=== PATIENT | female | born 2000 | race Caucasian/White ===

== ENCOUNTER 2021-04-03 17:23 | Inpatient (IN) | payer OTHER, SELFPAY ==
[2021-04-03 17:34] VITALS: BMI 23.8
[2021-04-03 18:25] VITALS: BP 111/69; PULSE 98; RESP 16; TEMP 36.2; O2SAT 98
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
--- NOTE | 2021-04-03 22:02 | PC.NURSE ---
Pt signed a 3-day notice 04/03/21, up on 04/06/21
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
[2021-04-04 06:00] VITALS: BP 114/73; PULSE 98; RESP 16; TEMP 35.8; O2SAT 99
[2021-04-04 10:22] LABS: UPreg QC Valid YES; Urine Pregnancy NEGATIVE (NEGATIVE)
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
[2021-04-04 19:40] VITALS: BP 126/77; PULSE 94; TEMP 36.6
[2021-04-04] MEDS: risperiDONE 1 MG TABLET PO (20:36)
[2021-04-04] MEDS: hydrOXYzine HCL 25 MG TABLET PO (22:39)
[2021-04-05 06:30] VITALS: BP 99/61; PULSE 83; RESP 16; O2SAT 98
[2021-04-05] MEDS: risperiDONE 1 MG TABLET PO ×2 (09:03→20:30)
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
[2021-04-05 17:42] VITALS: BP 119/76; PULSE 107; RESP 16; TEMP 36.2; O2SAT 93
[2021-04-05] MEDS: hydrOXYzine HCL 25 MG TABLET PO (21:37)
[2021-04-06 06:47] VITALS: BP 108/66; PULSE 76; TEMP 36; O2SAT 95
[2021-04-06] MEDS: risperiDONE 1 MG TABLET PO (09:08)
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
== END 2021-04-06 13:55 | disposition home or self-care (01) | DRG 751 ==
PROVIDERS: Registered Nurse; Admitting Provider Psychiatry & Neurology Psychiatry; Visit Provider Social Worker
DX: F29 Unspecified psychosis not due to a substance or known physiological condition (principal); Z79.899 Other long term (current) drug therapy
CPT/HCPCS: 81025

== ENCOUNTER 2021-05-10 14:22 | Inpatient (IN) | payer MEDICAID, SELFPAY ==
[2021-05-10 14:28] VITALS: BP 139/45; PULSE 94; O2SAT 98
--- NOTE | 2021-05-10 14:30 | ED_ITS ---
HPI - Psych General Chief Complaint: Psychiatric Symptoms Stated Complaint: crisis Time Seen by Provider: 05/10/21 14:25 Source: patient and EMS Mode of arrival: ambulatory Limitations: no limitations History of Present Illness HPI Narrative: This is a 20-year-old female coming from a [email or web address] parking lot where she called EMS, because she felt unsafe. When asking her what is wrong with her today she states I am going crazy for real . She states that she has been feeling weird for the past 2-3 months since her grandfather . She states that since he , she has been hearing his voice, in seeing him. She states she has been drinking more, and she decided to stop her risperidone about a week ago. She also states that she is going through a break-up with her significant other. She thinks that she might be at this time, she states she has been having nausea, vomiting, abdominal pain. She denies SI and states she is upset and wants to hurt her exboyfriend. She has munoz d 1 previous hospital admission here at [facility] on 04/06/2021 where she was diagnosed with unspecified psychotic disorder, and started on risperidone (1mg PO BID). She denies chest pain, shortness of breath, fevers, chills, recent sick contacts, tactile hallucinations. She admits to visual and auditory hallucinations. She states she has been drinking more recently but is unable to specify what she is drinking and how often. She does not drink, or smoke. Throughout the interview she appears paranoid. MD complaint: feels depressed, anxiety, hallucinations (Visual and auditory) and other (Increased alcohol consumption) Onset (ago): day(s) (1) Duration: constant History of same: Yes Relieving factors: none Exacerbating factors: none Context: not taking psychiatric medications (Stop risperidone about a week ago) and significant life stressor Associated psychiatric symptoms: depression, suicidal ideation, homicidal ideation, racing thoughts, auditory hallucinations (Hearing her grandfather, and her dog) and visual hallucinations (Seeing her grandfather) Associated symptoms: nausea, vomiting and other (Abdominal pain) Treatments prior to arrival: none Related Data Home Medications Medication Instructions Recorded Confirmed No Known Home Meds 05/10/21 05/10/21 Allergies Allergy/AdvReac Type Severity Reaction Status Date / Time No Known Allergies Allergy Verified 04/03/21 18:08 Review of Systems Review of Systems: Constitutional : No Fever, No Chills ENT/Mouth : No Ear Pain, No Nasal Congestion, No sore throat Eyes: No Eye Pain, No Swelling, No Redness Cardiovascular : No Chest Pain, No SOB Respiratory : No Cough, No Sputum, No Dyspnea Gastrointestinal : positive Nausea, positive Vomiting, No Diarrhea, No Hematochezia, No Melena, positive Abdominal Pain Genitourinary : No Dysuria, No Urinary Frequency, No Hematuria Musculoskeletal : No Myalgias Skin : No Skin Lesions, No rash Neuro : No Weakness, No Numbness, No Paresthesias, No Dizziness, No Headache Psych : positive Anxiety, positive Depression, positive HI, No SI, positive auditory, visual hallucinations, negative tactile hallucinations Heme/Lymph: No Lymphadenopathy Endocrine : No Polyuria, No Polydipsia All other systems reviewed and are negative [facility] Past Medical History Attestation statement: The following information was validated with the patient. Source: old records reviewed Medical History Psychosis Social History Social History (Updated 05/10/21 @ 14:43 by Diamond Berger DO) Household Members: Family Housing: House Do you presently have visiting nurse or other home services: No Alcohol intake: current Patient Tobacco Use Status: Never used Tobacco Second Hand Smoke Exposure: No Advance Directives: No Advance Directives Information Provided: Yes service: No Sexual orientation: Straight/Heterosexual Physical Exam Vital Signs: Vital Signs: Body Mass Index 30.0 Appearance: Alert. Oriented X3. No acute distress. Slow speech, very paranoid, Anxious Eyes: Pupils equal, round and reactive to light. ENT: Pharynx normal. Neck: Normal inspection. Neck supple. CVS: Normal heart rate and rhythm. Pulses normal. Respiratory: No respiratory distress. Breath sounds normal. Abdomen: Soft and nontender. Skin: Skin warm and dry. Normal skin color. Normal skin turgor. Extremities: No lower extremity edema. No calf ttp Neuro: Oriented X 3. No motor deficit. No sensory deficit. No nystagmus Psych: positive auditory and visual hallucinations while examining patient CN2- 12 intact Course Course Course Narrative: This is a 20-year-old female that presents to the emergency department with 2 days worsening anxiety, depression and psychosis. She states that 2-3 months ago her grandfather , and not long ago she broke up with her significant other which triggered this episode she thinks. She states that she hears her grandfather talking to her, and sees him. She also states she hears her dog talking to her. She adds that she was prescribed risperidone for psychosis, however she decided to stop taking that a week ago. She also mentions that she feels like she may be at this time. She is not SI, but makes vague HI remarks, stating she wants to hurt her ex-boyfriend. She also mentions that she has been drinking more than usual. She denies drug use, or tobacco. Physician observation started at 1535. Patient placed in physician observation because the patient needed more time to see and be evaluated for the need for psych admission. At the time observation was started the patient's vitals were stable, patient is alert and oriented and cooperative, Neuro: nonfocal, CV RRR, Lungs clear MDM - Psych MDM Narrative Medical decision making narrative: Based off of the patient's history, physical examination this patient has been placed on a Section 12 upon arrival. CBC, BMP, drug screen, liver panel, urine test, COVID test and ethanol have all been ordered. Lab Data Result diagrams: 05/10/21 15:05 05/10/21 15:05 Labs: Lab Results 05/10/21 05/10/21 05/10/21 Range/Units 14:59 14:59 15:05 WBC 10.0 (4.8-10.8) X10*3/uL RBC 4.49 (4.20-5.50) X10*6/uL Hgb 13.1 (12.0-16.0) g/dl Hct 38.9 (37-47) % MCV 86.6 (80-98) fL MCH 29.2 (27.0-33.0) pg MCHC 33.7 (31.0-35.0) g/dl RDW 12.8 (11.0-16.0) % Plt Count 360 (160-400) X10*3/uL MPV 9.8 (9.4-12.3) fL Immature Gran % (Auto) 0.3 (0.0-0.4) % Neut % (Auto) 79.4 H (45-73) % Lymph % (Auto) 14.7 L (20-40) % [place] % (Auto) 4.9 (2-11) % Eos % (Auto) 0.1 (0-4) % Baso % (Auto) 0.6 (0-2) % Lymph # (Auto) 1.5 (1.2-4.9) X10*3/uL [place] # (Auto) 0.5 (0.1-1.2) X10*3/uL Eos # (Auto) 0.0 (0.0-0.4) X10*3/uL Baso # (Auto) 0.1 (0.0-0.2) X10*3/uL Abs Immat Gran (auto) 0.03 (0.00-0.03) X10*3/uL Absolute Neuts (auto) 7.9 (2.0-8.3) X10*3/uL Absolute Nucleated RBC 0.000 (0.0-0.012) X10*3/uL Nucleated RBC % (auto) 0.0 (0.0-0.2) /100WBC Sodium (135-145) mmol/L Potassium (3.3-5.1) mmol/L Chloride (96-108) mmol/L Carbon Dioxide (22-29) mmol/L Anion Gap (12-20) BUN (9-16) mg/dL Creatinine (0.5-1.4) mg/dL Estim Creat Clear Calc Estimated GFR Random Glucose (60-115) mg/dL Calcium (8.4-10.2) mg/dL Total Bilirubin (0.0-1.0) mg/dL Direct Bilirubin (0.0-0.5) mg/dL AST (5-31) U/L ALT (0-31) U/L Alkaline Phosphatase (39-117) U/L Total Protein (6.5-8.0) g/dL Albumin (3.5-5.0) g/dL Urine Test NEGATIVE (NEGATIVE) Urine Opiates Screen Not Detected (Not Detect) Urine Fentanyl Screen Not Detected (Not Detect) Ur Barbiturates Screen Not Detected (Not Detect) Ur Phencyclidine Scrn Not Detected (Not Detect) Ur Amphetamines Screen Not Detected (Not Detect) U Benzodiazepines Scrn Not Detected (Not Detect) Urine Cocaine Screen Not Detected (Not Detect) U Marijuana (THC) Screen Not Detected (Not Detect) Ethyl Alcohol mg/dL COVID-19 ([facility]) (Negative) COVID-19 Clin Com 05/10/21 05/10/21 05/10/21 Range/Units 15:05 15:05 15:05 WBC (4.8-10.8) X10*3/uL RBC (4.20-5.50) X10*6/uL Hgb (12.0-16.0) g/dl Hct (37-47) % MCV (80-98) fL MCH (27.0-33.0) pg MCHC (31.0-35.0) g/dl RDW (11.0-16.0) % Plt Count (160-400) X10*3/uL MPV (9.4-12.3) fL Immature Gran % (Auto) (0.0-0.4) % Neut % (Auto) (45-73) % Lymph % (Auto) (20-40) % [place] % (Auto) (2-11) % Eos % (Auto) (0-4) % Baso % (Auto) (0-2) % Lymph # (Auto) (1.2-4.9) X10*3/uL [place] # (Auto) (0.1-1.2) X10*3/uL Eos # (Auto) (0.0-0.4) X10*3/uL Baso # (Auto) (0.0-0.2) X10*3/uL Abs Immat Gran (auto) (0.00-0.03) X10*3/uL Absolute Neuts (auto) (2.0-8.3) X10*3/uL Absolute Nucleated RBC (0.0-0.012) X10*3/uL Nucleated RBC % (auto) (0.0-0.2) /100WBC Sodium 137 (135-145) mmol/L Potassium 3.7 (3.3-5.1) mmol/L Chloride 107 (96-108) mmol/L Carbon Dioxide 20 L (22-29) mmol/L Anion Gap 14 (12-20) BUN 6 L (9-16) mg/dL Creatinine 0.76 (0.5-1.4) mg/dL Estim Creat Clear Calc 119.3 Estimated GFR > 60 Random Glucose 124 H (60-115) mg/dL Calcium 9.7 (8.4-10.2) mg/dL Total Bilirubin 0.3 (0.0-1.0) mg/dL Direct Bilirubin 0.2 (0.0-0.5) mg/dL AST 18 (5-31) U/L ALT 16 (0-31) U/L Alkaline Phosphatase 54 (39-117) U/L Total Protein 7.4 (6.5-8.0) g/dL Albumin 4.5 (3.5-5.0) g/dL Urine Test (NEGATIVE) Urine Opiates Screen (Not Detect) Urine Fentanyl Screen (Not Detect) Ur Barbiturates Screen (Not Detect) Ur Phencyclidine Scrn (Not Detect) Ur Amphetamines Screen (Not Detect) U Benzodiazepines Scrn (Not Detect) Urine Cocaine Screen (Not Detect) U Marijuana (THC) Screen (Not Detect) Ethyl Alcohol < 10 mg/dL COVID-19 ([facility]) Negative (Negative) COVID-19 Clin Com See Note Discharge Plan Discharge Clinical Impression: Acute psychosis Prescriptions: No Action No Known Home Meds RF: 0
--- NOTE | 2021-05-10 15:01 | PHA.MEDREC ---
Pharmacy Consult ? Medication Reconciliation Pharmacy has completed the medication reconciliation. Patient was using risperidone 1mg BID, but had psychiaric symptoms and self- D/C'd. Thanks Tucker Archuleta Pharm. D
[2021-05-10 15:11] LABS: MANUAL DIFF FLAG NO
[2021-05-10 15:13] LABS: Basophils Absolute Auto 0.1 X10*3/uL (0.0-0.2); Basophils Percent Auto 0.6 % (0-2); Eosinophils Percent Auto 0.1 % (0-4); Hematocrit 38.9 % (37-47); Hemoglobin 13.1 g/dl (12.0-16.0); Imm Gran Abs Auto 0.03 X10*3/uL (0.00-0.03); Imm Gran Pct Auto 0.3 % (0.0-0.4); Lymphocytes Absolute Auto 1.5 X10*3/uL (1.2-4.9); Lymphocytes Percent Auto 14.7 % (20-40); Mean Corpuscular HGB Conc 33.7 g/dl (31.0-35.0); Mean Corpuscular Hemoglobin 29.2 pg (27.0-33.0); Mean Corpuscular Volume 86.6 fL (80-98); Mean Platelet Volume 9.8 fL (9.4-12.3); Monocytes Absolute Auto 0.5 X10*3/uL (0.1-1.2); Monocytes Percent Auto 4.9 % (2-11); Neutrophils Absolute Auto 7.9 X10*3/uL (2.0-8.3); Neutrophils Percent Auto 79.4 % (45-73); Platelet Count 360 X10*3/uL (160-400); Red Blood Count 4.49 X10*6/uL (4.20-5.50); Red Cell Distribution Width 12.8 % (11.0-16.0)
[2021-05-10 15:13] LABS: UPreg QC Valid YES; Urine Pregnancy NEGATIVE (NEGATIVE)
[2021-05-10 15:28] LABS: COVID-19 Test Negative (Negative)
[2021-05-10 15:29] LABS: Ethanol < 10 mg/dL
[2021-05-10 15:33] LABS: Alanine Aminotransferase 16 U/L (0-31); Albumin Level 4.5 g/dL (3.5-5.0); Alkaline Phosphatase 54 U/L (39-117); Anion Gap 14 (12-20); Aspartate Amino Transferase 18 U/L (5-31); Bilirubin Direct 0.2 mg/dL (0.0-0.5); Bilirubin Total 0.3 mg/dL (0.0-1.0); Blood Urea Nitrogen 6 mg/dL (9-16); Calcium 9.7 mg/dL (8.4-10.2); Carbon Dioxide 20 mmol/L (22-29); Chloride 107 mmol/L (96-108); Creatinine Clr Calc Pharmacy 119.3; Estimated Glomerular Filt Rate > 60; Glucose Random 124 mg/dL (60-115); Potassium 3.7 mmol/L (3.3-5.1); Sodium 137 mmol/L (135-145); Total Protein 7.4 g/dL (6.5-8.0)
[2021-05-10 15:36] LABS: Amphetamine Screen Urine Not Detected (Not Detect); Barbiturates, Urine Not Detected (Not Detect); Benzodiazepines Screen Urine Not Detected (Not Detect); Cannabinoid Screen Urine Not Detected (Not Detect); Cocaine Screen Urine Not Detected (Not Detect); Fentanyl, urine Not Detected (Not Detect); Opiate Screen Urine Not Detected (Not Detect); Phencyclidine Screen Urine Not Detected (Not Detect)
--- NOTE | 2021-05-10 16:26 | PC.NURSE ---
PT STATES SHE HAS A CYST AND WOULD LIKE IT CHECKED. PROVIDER AWARE.
[2021-05-10] MEDS: diphenhydrAMINE HCL 25 MG TABLET 50 MG PO (19:31)
[2021-05-10] MEDS: OLANZapine 5 MG TABLET PO (19:31)
[2021-05-10 20:02] LABS: Appearance Urine CLEAR; Color Urine YELLOW; Glucose Urine UA NEG (NEG); Leukocyte Esterase Urine NEG (NEG); Nitrite Urine NEG (NEG); PH 6.5 (5.0-8.0); Specific Gravity - Urine <= 1.005 (1.005-1.025); Urine Blood 1+ (NEG); Urine Ketones NEG (NEG); Urine Protein NEG (NEG-TRACE)
[2021-05-10 20:10] LABS: Bacteria Urine TRACE /LPF; Mucus Urine 2+ /LPF; Squamous Epithelial Cell Urine 3+ /LPF
[2021-05-10 20:11] LABS: RBC Urine 0-2 /HPF (0); WBC Urine 0 /HPF (0-4)
[2021-05-10 20:34] VITALS: BP 141/99; PULSE 86; RESP 16; TEMP 36.5; O2SAT 99
[2021-05-10 23:40] VITALS: BP 96/87; PULSE 70; RESP 16; TEMP 36.6; O2SAT 98
[2021-05-11 00:24] VITALS: BP 133/83; PULSE 86; RESP 18; TEMP 36.9; O2SAT 98
[2021-05-11 00:25] VITALS: BMI 39.1
--- NOTE | 2021-05-11 00:37 | PC.ADMIT ---
Pt. admitted at midnight on 05/11/2021 from the ED. Pt. reported she came to the ED because she felt she was being watched. Pt. denies SI and contracts for safety. Pt. signed a CV. Pt. alert and oriented x3. Pt. denies any acute medical issues. She reports she is not currently taking any medications. Pt. denied HI, AH and VH. Pt. has a diagnosis of unspecified schizophrenia spectrum. Pt. was calm and cooperative. She denied depression and anxiety. Pt. reported feeling tired. She did not demonstrate any delusional thinking other than reporting she has felt as though she is being watched. Pt. is able to ambulate independently without DME. She reported back pain 02/25 and stated that rest might help. Pharmacy is [facility]. Pt. is on 15 minute safety checks. Pt. oriented to unit. Admission assessment completed. Height 5'2 , weight 97.1kg on standing scale. Tox screen negative. ETOH <10. Pt. tested negative for COVID-19. She has not received a COVID-19 vaccine. Pt. is resting quietly with eyes closed.
[2021-05-11 07:00] VITALS: BMI 38.8
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
[2021-05-11] MEDS: ARIPiprazole 5 MG TABLET PO (10:19)
[2021-05-11 17:36] VITALS: BP 108/64; PULSE 86; RESP 18; TEMP 36; O2SAT 94
[2021-05-11] MEDS: hydrOXYzine HCL 25 MG TABLET PO (20:27)
[2021-05-12] MEDS: ARIPiprazole 5 MG TABLET PO (09:11)
--- NOTE | 2021-05-12 09:51 | P.PNPSI_ITS ---
Subjective Subjective Date of Service: 05/12/21 Reason For Visit: crisis Interim History: Patient reports that she is overall feeling better. She denies any side effects from Abilify. She said she still feeling angry towards some of her family and some people at work for putting her in a difficult situation however she denies any HI at all. She also denies any SI or AVH. Patient said that someone posted some negative things about her on snap chat and then a lewis at work made fun of her for which she found very upsetting. Otherwise she has no complaints and no requests. Later in the day however patient asked scientific technical writer if a phone call could be made to her boss. She expanded her explanation and said that she had intercourse with man who wrote about a on snap chat; a co-worker knew this man, told everyone at work and was making fun of her which caused her to come to the hospital. Apparently she says her boss does not believe her and is going to fire her.Patient asked for scientific technical writer to call her boss and say this is true however she accepted that scientific technical writer is unable to do this; scientific technical writer however inquired with social work who says they are aware of the situation and plan to call her work on Saturday Mental Status Exam Mental Status Exam Narrative: Appearance: casually groomed, fair hygiene in NAD; in hospital gown Behavior:cooperative, calm, friendly psychomotor:no agitation or retardation noted Speech:clear, normal rate/rhythm/volume, spontaneous Thought process:goal oriented Thought content:on treatment; problems at work Mood: better Affect: congruent SI:denies HI:denies VH/AH:denies Delusions:question of paranoid delusions Insight/judgment:fair? Memory/cog: alert, oriented x 3. Diagnostics Vital Signs (24Hr): Vital Signs - 24 hr 05/11/21 17:36 Temperature 96.8 F Pulse Rate 86 Respiratory Rate 18 Blood Pressure 108/64 Pulse Oximetry 94 Body Mass Index 38.8 Labs Results: 05/10/21 15:05 05/10/21 15:05 Labs: Laboratory Results - last 48 hr 05/10/21 05/10/21 05/10/21 14:59 14:59 14:59 WBC RBC Hgb Hct MCV MCH MCHC RDW Plt Count MPV Immature Gran % (Auto) Neut % (Auto) Lymph % (Auto) Sevier % (Auto) Eos % (Auto) Baso % (Auto) Lymph # (Auto) Sevier # (Auto) Eos # (Auto) Baso # (Auto) Abs Immat Gran (auto) Absolute Neuts (auto) Absolute Nucleated RBC Nucleated RBC % (auto) Sodium Potassium Chloride Carbon Dioxide Anion Gap BUN Creatinine Estim Creat Clear Calc Estimated GFR Random Glucose Calcium Total Bilirubin Direct Bilirubin AST ALT Alkaline Phosphatase Total Protein Albumin Urine Color YELLOW Urine Appearance CLEAR Urine pH 6.5 Ur Specific Dane <= 1.005 Urine Protein NEG Urine Glucose (UA) NEG Urine Ketones NEG Urine Blood 1+ H Urine Nitrite NEG Ur Leukocyte Esterase NEG Urine RBC 0-2 Urine WBC 0 Ur Squamous Epith Cells 3+ Urine Bacteria TRACE Urine Mucus 2+ Urine Test NEGATIVE Urine Opiates Screen Not Detected Urine Fentanyl Screen Not Detected Ur Barbiturates Screen Not Detected Ur Phencyclidine Scrn Not Detected Ur Amphetamines Screen Not Detected U Benzodiazepines Scrn Not Detected Urine Cocaine Screen Not Detected U Marijuana (THC) Screen Not Detected Ethyl Alcohol COVID-19 ([facility]) COVID-19 Clin Com 05/10/21 05/10/21 05/10/21 15:05 15:05 15:05 WBC 10.0 RBC 4.49 Hgb 13.1 Hct 38.9 MCV 86.6 MCH 29.2 MCHC 33.7 RDW 12.8 Plt Count 360 MPV 9.8 Immature Gran % (Auto) 0.3 Neut % (Auto) 79.4 H Lymph % (Auto) 14.7 L Sevier % (Auto) 4.9 Eos % (Auto) 0.1 Baso % (Auto) 0.6 Lymph # (Auto) 1.5 Sevier # (Auto) 0.5 Eos # (Auto) 0.0 Baso # (Auto) 0.1 Abs Immat Gran (auto) 0.03 Absolute Neuts (auto) 7.9 Absolute Nucleated RBC 0.000 Nucleated RBC % (auto) 0.0 Sodium 137 Potassium 3.7 Chloride 107 Carbon Dioxide 20 L Anion Gap 14 BUN 6 L Creatinine 0.76 Estim Creat Clear Calc 119.3 Estimated GFR > 60 Random Glucose 124 H Calcium 9.7 Total Bilirubin 0.3 Direct Bilirubin 0.2 AST 18 ALT 16 Alkaline Phosphatase 54 Total Protein 7.4 Albumin 4.5 Urine Color Urine Appearance Urine pH Ur Specific Dane Urine Protein Urine Glucose (UA) Urine Ketones Urine Blood Urine Nitrite Ur Leukocyte Esterase Urine RBC Urine WBC Ur Squamous Epith Cells Urine Bacteria Urine Mucus Urine Test Urine Opiates Screen Urine Fentanyl Screen Ur Barbiturates Screen Ur Phencyclidine Scrn Ur Amphetamines Screen U Benzodiazepines Scrn Urine Cocaine Screen U Marijuana (THC) Screen Ethyl Alcohol COVID-19 ([facility]) Negative COVID-19 Nexi Com See Note 05/10/21 15:05 WBC RBC Hgb Hct MCV MCH MCHC RDW Plt Count MPV Immature Gran % (Auto) Neut % (Auto) Lymph % (Auto) Sevier % (Auto) Eos % (Auto) Baso % (Auto) Lymph # (Auto) Sevier # (Auto) Eos # (Auto) Baso # (Auto) Abs Immat Gran (auto) Absolute Neuts (auto) Absolute Nucleated RBC Nucleated RBC % (auto) Sodium Potassium Chloride Carbon Dioxide Anion Gap BUN Creatinine Estim Creat Clear Calc Estimated GFR Random Glucose Calcium Total Bilirubin Direct Bilirubin AST ALT Alkaline Phosphatase Total Protein Albumin Urine Color Urine Appearance Urine pH Ur Specific Dane Urine Protein Urine Glucose (UA) Urine Ketones Urine Blood Urine Nitrite Ur Leukocyte Esterase Urine RBC Urine WBC Ur Squamous Epith Cells Urine Bacteria Urine Mucus Urine Test Urine Opiates Screen Urine Fentanyl Screen Ur Barbiturates Screen Ur Phencyclidine Scrn Ur Amphetamines Screen U Benzodiazepines Scrn Urine Cocaine Screen U Marijuana (THC) Screen Ethyl Alcohol < 10 COVID-19 ([facility]) COVID-19 Clin Com Medications Medications Current Medications Acetaminophen (Acetaminophen 325 Mg Tablet) 650 mg PO Q6H PRN PRN Reason: Headache/Pain Mild Scale (1-3) Al Hydroxide/Mg Hydroxide (Magnesium Hydrox/Alum Hydrox 30 Ml Oral.Susp) 30 ml PO Q6H PRN PRN Reason: Heartburn/Nausea Aripiprazole (Aripiprazole 5 Mg Tablet) 5 mg PO DAILY STEFF Last Admin: 05/12/21 09:11 Dose: 5 mg Documented by: Hydroxyzine HCl (Hydroxyzine Hcl 25 Mg Tablet) 25 mg PO BEDTIME PRN PRN Reason: Anxiety Last Admin: 05/11/21 20:27 Dose: 25 mg Documented by: Magnesium Hydroxide (Milk Of Magnesia 30 Ml Oral.Susp) 30 ml PO DAILY PRN PRN Reason: Constipation Nicotine Polacrilex (Nicotine Polacrilex 2 Mg Gum) 2 mg BUCCAL Q2H PRN PRN Reason: Nicotine Cravings Trazodone HCl (Trazodone Hcl 50 Mg Tablet) 50 mg PO BEDTIME PRN PRN Reason: Insomnia Allergies Allergies Allergy/AdvReac Type Severity Reaction Status Date / Time No Known Allergies Allergy Verified 04/03/21 18:08 Assessment & Plan Assessment & Plan (1) Bipolar 1 disorder, mixed, moderate: Status: Acute Code(s): F31.62 - Bipolar disorder, current episode mixed, moderate Assessment and Plan: Health Information Coder covering 05/12 No changes to current treatment plan Impression: 21 y.o. female with hx of paranoid and somatic delusional thought content. plan: abilify 5mg daily Greater than 50% of the session was spent on counseling and/or coordination of care Reason for contiued inpatient stay Substantial Risk for: inability to function
[2021-05-12] MEDS: Magnesium Hydrox/Alum Hydrox 30 ML ORAL.SUSP PO (13:30)
[2021-05-12 13:37] VITALS: BP 126/72; PULSE 99; RESP 18; O2SAT 94
[2021-05-12 16:19] VITALS: BP 139/84; PULSE 108; TEMP 36.5
[2021-05-12] MEDS: Acetaminophen 325 MG TABLET 650 MG PO (19:31)
[2021-05-12] MEDS: hydrOXYzine HCL 25 MG TABLET PO (20:25)
[2021-05-13 06:00] VITALS: BP 122/89; PULSE 90; RESP 16; TEMP 35.9; O2SAT 99
[2021-05-13] MEDS: ARIPiprazole 5 MG TABLET PO (08:41)
[2021-05-13 10:39] LABS: Cholesterol 158 mg/dL; HDL Cholesterol 34 mg/dL; LDL Cholesterol Calculated 80 mg/dl; Triglycerides 220 mg/dL
[2021-05-13 10:44] LABS: Reflex LDLD? No
[2021-05-13 10:58] LABS: Estimated Average Glucose 82 mg/dL; Hemoglobin A1c % 4.5 %
[2021-05-13 18:00] VITALS: BP 136/78; PULSE 88; TEMP 36.8; O2SAT 96
[2021-05-13] MEDS: hydrOXYzine HCL 25 MG TABLET PO (20:16)
[2021-05-14 06:00] VITALS: BP 121/80; PULSE 111; RESP 14; TEMP 36.4; O2SAT 97
[2021-05-14] MEDS: ARIPiprazole 5 MG TABLET PO (09:05)
[2021-05-14 16:57] VITALS: BP 123/76; PULSE 107; TEMP 36.4; O2SAT 98
--- NOTE | 2021-05-14 20:01 | HO.PSYCHPN ---
Subjective Subjective Date of Service: 05/13/21 Reason For Visit: crisis Interim History: pt seen on 05/13 pt reports mood is better; no SI or HI; no AVH. Pt says she's just been thinking about incident that happened and how to deal with it; she's figuring she'll lose her job and thinking about how she'll pay for rent. Sleeping well enough; reported some nausea but now feels ok. Mental Status Exam Mental Status Exam Narrative: ?Appearance: casually groomed, in hospital gown, fair hygiene in NAD Behavior:cooperative psychomotor:no agitation or retardation noted Speech:clear, normal rate/rhythm/volume, spontaneous Thought process:linear, goal oriented Thought content: on dealing with incident at work Mood:feeling better Affect: congruent, guarded SI:denies HI:denies VH/AH:denies Delusions:none expressed Insight/judgment:unclear? Memory/cog: alert, oriented x 3.? Diagnostics Vital Signs (24Hr): Vital Signs - 24 hr 05/14/21 06:00 05/14/21 16:57 Temperature 97.5 F 97.6 F Pulse Rate 111 H 107 H Respiratory Rate 14 Blood Pressure 121/80 123/76 Pulse Oximetry 97 98 Body Mass Index 38.8 Labs Results: 05/10/21 15:05 05/10/21 15:05 Labs: Laboratory Results - last 48 hr 05/13/21 05/13/21 09:28 09:28 Estimat Average Glucose 82 Hemoglobin A1c % 4.5 Triglycerides 220 Cholesterol 158 LDL Cholesterol, Calc 80 HDL Cholesterol 34 Medications Medications Current Medications Acetaminophen (Acetaminophen 325 Mg Tablet) 650 mg PO Q6H PRN PRN Reason: Headache/Pain Mild Scale (1-3) Last Admin: 05/12/21 19:31 Dose: 325 mg Documented by: Al Hydroxide/Mg Hydroxide (Magnesium Hydrox/Alum Hydrox 30 Ml Oral.Susp) 30 ml PO Q6H PRN PRN Reason: Heartburn/Nausea Last Admin: 05/12/21 13:30 Dose: 30 ml Documented by: Aripiprazole (Aripiprazole 5 Mg Tablet) 5 mg PO DAILY STEFF Last Admin: 05/14/21 09:05 Dose: 5 mg Documented by: Hydroxyzine HCl (Hydroxyzine Hcl 25 Mg Tablet) 25 mg PO BEDTIME PRN PRN Reason: Anxiety Last Admin: 05/13/21 20:16 Dose: 25 mg Documented by: Magnesium Hydroxide (Milk Of Magnesia 30 Ml Oral.Susp) 30 ml PO DAILY PRN PRN Reason: Constipation Nicotine Polacrilex (Nicotine Polacrilex 2 Mg Gum) 2 mg BUCCAL Q2H PRN PRN Reason: Nicotine Cravings Trazodone HCl (Trazodone Hcl 50 Mg Tablet) 50 mg PO BEDTIME PRN PRN Reason: Insomnia Allergies Allergies Allergy/AdvReac Type Severity Reaction Status Date / Time No Known Allergies Allergy Verified 04/03/21 18:08 Assessment & Plan Assessment & Plan (1) Bipolar 1 disorder, mixed, moderate: Status: Acute Code(s): F31.62 - Bipolar disorder, current episode mixed, moderate Assessment and Plan: Beating Machine Operator covering 05/13 No changes to current treatment plan Impression: 21 y.o. female with hx of paranoid and somatic delusional thought content. plan: abilify 5mg daily Greater than 50% of the session was spent on counseling and/or coordination of care Reason for contiued inpatient stay Substantial Risk for: med/psych decompensation
--- NOTE | 2021-05-14 20:01 | HO.PSYCHPN ---
Subjective Subjective Date of Service: 05/14/21 Reason For Visit: crisis Interim History: pt reports mood is good; she denies SI/HI/Avh. Says she's hoping for discharge soon so she can figure on how to pay rent. Mental Status Exam Mental Status Exam Narrative: Appearance: casually groomed, in hospital gown, fair hygiene in NAD Behavior:cooperative psychomotor:no agitation or retardation noted Speech:clear, normal rate/rhythm/volume, spontaneous Thought process:linear, goal oriented Thought content: on dealing with incident at work Mood:feeling better Affect: congruent, guarded SI:denies HI:denies VH/AH:denies Delusions:none expressed Insight/judgment:unclear? Memory/cog: alert, oriented x 3.? Diagnostics Vital Signs (24Hr): Vital Signs - 24 hr 05/14/21 06:00 05/14/21 16:57 Temperature 97.5 F 97.6 F Pulse Rate 111 H 107 H Respiratory Rate 14 Blood Pressure 121/80 123/76 Pulse Oximetry 97 98 Body Mass Index 38.8 Labs Results: 05/10/21 15:05 05/10/21 15:05 Labs: Laboratory Results - last 48 hr 05/13/21 05/13/21 09:28 09:28 Estimat Average Glucose 82 Hemoglobin A1c % 4.5 Triglycerides 220 Cholesterol 158 LDL Cholesterol, Calc 80 HDL Cholesterol 34 Medications Medications Current Medications Acetaminophen (Acetaminophen 325 Mg Tablet) 650 mg PO Q6H PRN PRN Reason: Headache/Pain Mild Scale (1-3) Last Admin: 05/12/21 19:31 Dose: 325 mg Documented by: Al Hydroxide/Mg Hydroxide (Magnesium Hydrox/Alum Hydrox 30 Ml Oral.Susp) 30 ml PO Q6H PRN PRN Reason: Heartburn/Nausea Last Admin: 05/12/21 13:30 Dose: 30 ml Documented by: Aripiprazole (Aripiprazole 5 Mg Tablet) 5 mg PO DAILY STEFF Last Admin: 05/14/21 09:05 Dose: 5 mg Documented by: Hydroxyzine HCl (Hydroxyzine Hcl 25 Mg Tablet) 25 mg PO BEDTIME PRN PRN Reason: Anxiety Last Admin: 05/13/21 20:16 Dose: 25 mg Documented by: Magnesium Hydroxide (Milk Of Magnesia 30 Ml Oral.Susp) 30 ml PO DAILY PRN PRN Reason: Constipation Nicotine Polacrilex (Nicotine Polacrilex 2 Mg Gum) 2 mg BUCCAL Q2H PRN PRN Reason: Nicotine Cravings Trazodone HCl (Trazodone Hcl 50 Mg Tablet) 50 mg PO BEDTIME PRN PRN Reason: Insomnia Allergies Allergies Allergy/AdvReac Type Severity Reaction Status Date / Time No Known Allergies Allergy Verified 04/03/21 18:08 Assessment & Plan Assessment & Plan (1) Bipolar 1 disorder, mixed, moderate: Status: Acute Code(s): F31.62 - Bipolar disorder, current episode mixed, moderate Assessment and Plan: Machine Steak Tenderizer covering 05/14 unclear if patients concerns are based in reality as there are some questions about delusional thinking. Will defer to primary team. No changes to current treatment plan Impression: 21 y.o. female with hx of paranoid and somatic delusional thought content. plan: abilify 5mg daily Greater than 50% of the session was spent on counseling and/or coordination of care Reason for contiued inpatient stay Substantial Risk for: med/psych decompensation
[2021-05-14] MEDS: traZODone HCL 50 MG TABLET PO (21:48)
[2021-05-15 06:00] VITALS: BP 132/71; PULSE 89; RESP 16; TEMP 36.4; O2SAT 97
[2021-05-15] MEDS: ARIPiprazole 5 MG TABLET PO (11:45)
--- NOTE | 2021-05-15 13:48 | P.PNPSI_ITS ---
Subjective Subjective Date of Service: 05/15/21 Reason For Visit: crisis Interim History: Pt appears more organized. She does continue to have some residual paranoia towards family, asking this senior mortgage underwriter to contact mostly aunt, not mother and she is suspicious of mother and thinks she is part of the problem. Per aunt, pt paranoia since January of this year, no previous hx of psychosis. Aunt think pt doing better in that she seems more organized and coherent, less suspicious. Pt denies SI/HI. She also denies VH/AH. discussed with aunt need to rule out paraneoplastic syndrome secondary to dermatoid cyst as culprit of psych symptoms. this can be done OP. Mental Status Exam Mental Status Exam Narrative: Appearance: casually groomed, in hospital gown, fair hygiene in NAD Behavior:cooperative psychomotor:no agitation or retardation noted Speech:clear, normal rate/rhythm/volume, spontaneous Thought process:linear, goal oriented Thought content: some suspiciousness towards family/mother, thinks father sent someone to get her Mood:feeling better Affect: congruent, guarded SI:denies HI:denies VH/AH:denies Delusions:some residual paranoia Insight/judgment:fair x 2. Memory/cog: alert, oriented x 3.? Diagnostics Vital Signs (24Hr): Vital Signs - 24 hr 05/14/21 16:57 05/15/21 06:00 Temperature 97.6 F 97.6 F Pulse Rate 107 H 89 Respiratory Rate 16 Blood Pressure 123/76 132/71 Pulse Oximetry 98 97 Body Mass Index 38.8 Labs Results: 05/10/21 15:05 05/10/21 15:05 Medications Medications Current Medications Acetaminophen (Acetaminophen 325 Mg Tablet) 650 mg PO Q6H PRN PRN Reason: Headache/Pain Mild Scale (1-3) Last Admin: 05/12/21 19:31 Dose: 325 mg Documented by: Al Hydroxide/Mg Hydroxide (Magnesium Hydrox/Alum Hydrox 30 Ml Oral.Susp) 30 ml PO Q6H PRN PRN Reason: Heartburn/Nausea Last Admin: 05/12/21 13:30 Dose: 30 ml Documented by: Aripiprazole (Aripiprazole 10 Mg Tablet) 10 mg PO DAILY STEFF Hydroxyzine HCl (Hydroxyzine Hcl 25 Mg Tablet) 25 mg PO BEDTIME PRN PRN Reason: Anxiety Last Admin: 05/13/21 20:16 Dose: 25 mg Documented by: Magnesium Hydroxide (Milk Of Magnesia 30 Ml Oral.Susp) 30 ml PO DAILY PRN PRN Reason: Constipation Nicotine Polacrilex (Nicotine Polacrilex 2 Mg Gum) 2 mg BUCCAL Q2H PRN PRN Reason: Nicotine Cravings Trazodone HCl (Trazodone Hcl 50 Mg Tablet) 50 mg PO BEDTIME PRN PRN Reason: Insomnia Last Admin: 05/14/21 21:48 Dose: 50 mg Documented by: Allergies Allergies Allergy/AdvReac Type Severity Reaction Status Date / Time No Known Allergies Allergy Verified 04/03/21 18:08 Assessment & Plan Assessment & Plan (1) Bipolar 1 disorder, mixed, moderate: Status: Acute Code(s): F31.62 - Bipolar disorder, current episode mixed, moderate Assessment and Plan: Ms. Hernandez is a 21 year-old woman with new onset paranoia, psychosis since 01/2021. 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 Pt appears more coherent with abilify, but does need to do work up bárbara paraneoplastic syndrome OP to rule out medical etiology of current psychiatric presentation. Impression: 21 y.o. female with hx of paranoid and somatic delusional thought content. PLAN: 1. Increase abilify to 10mg po daily. 2. Pt on 3 day notice that expires on 05/16- pt will be d/c. 3. Coordination of care- with psych and evaluation of dermatoid cyst. Greater than 50% of the session was spent on counseling and/or coordination of care Reason for contiued inpatient stay Substantial Risk for: stable for discharge
[2021-05-15 17:36] VITALS: BP 123/73; PULSE 96; TEMP 36.5; O2SAT 97
[2021-05-15] MEDS: hydrOXYzine HCL 25 MG TABLET PO (22:25)
[2021-05-16 06:00] VITALS: BP 123/76; PULSE 87; RESP 16; TEMP 36.2; O2SAT 96
[2021-05-16] MEDS: ARIPiprazole 10 MG TABLET PO (09:57)
--- NOTE | 2021-05-16 10:28 | P.DS_ITS ---
DS: Providers Provider Date of Service: 06/15/21 Date of admission: 05/10/21 22:33 Primary care physician: Unknown Physician DS: Diagnosis Discharge Diagnosis (1) Bipolar 1 disorder, mixed, moderate: Status: Acute DS: Medications Discharge Medications Home Medications: Previous Rx's Medication Instructions Recorded aripiprazole 10 mg tablet 10 mg PO DAILY #30 tab 05/16/21 Mental Status Exam Mental Status Exam Narrative: Appearance: casually groomed, in hospital gown, fair hygiene in NAD Behavior:cooperative psychomotor:no agitation or retardation noted Speech:clear, normal rate/rhythm/volume, spontaneous Thought process:linear, goal oriented Thought content: some suspiciousness towards family/mother, thinks father sent someone to get her Mood:feeling better Affect: congruent, guarded SI:denies HI:denies VH/AH:denies Delusions:some residual paranoia Insight/judgment:fair x 2. Memory/cog: alert, oriented x 3.? Data Data Completed and Pending Completed studies during hospitalization [Text1]: 05/10/21 05/10/21 05/10/21 14:59 14:59 14:59 WBC RBC Hgb Hct MCV MCH MCHC RDW Plt Count MPV Immature Gran % (Auto) Neut % (Auto) Lymph % (Auto) [place] % (Auto) Eos % (Auto) Baso % (Auto) Lymph # (Auto) [place] # (Auto) Eos # (Auto) Baso # (Auto) Abs Immat Gran (auto) Absolute Neuts (auto) Absolute Nucleated RBC Nucleated RBC % (auto) Sodium Potassium Chloride Carbon Dioxide Anion Gap BUN Creatinine Estim Creat Clear Calc Estimated GFR Random Glucose Estimat Average Glucose Hemoglobin A1c % Calcium Total Bilirubin Direct Bilirubin AST ALT Alkaline Phosphatase Total Protein Albumin Triglycerides Cholesterol LDL Cholesterol, Calc HDL Cholesterol Urine Color YELLOW Urine Appearance CLEAR Urine pH 6.5 Ur Specific [place] <= 1.005 Urine Protein NEG Urine Glucose (UA) NEG Urine Ketones NEG Urine Blood 1+ H Urine Nitrite NEG Ur Leukocyte Esterase NEG Urine RBC 0-2 Urine WBC 0 Ur Squamous Epith Cells 3+ Urine Bacteria TRACE Urine Mucus 2+ Urine Test NEGATIVE Urine Opiates Screen Not Detected Urine Fentanyl Screen Not Detected Ur Barbiturates Screen Not Detected Ur Phencyclidine Scrn Not Detected Ur Amphetamines Screen Not Detected U Benzodiazepines Scrn Not Detected Urine Cocaine Screen Not Detected U Marijuana (THC) Screen Not Detected Ethyl Alcohol COVID-19 ([facility]) COVID-19 Clin Com 05/10/21 05/10/21 05/10/21 15:05 15:05 15:05 WBC 10.0 RBC 4.49 Hgb 13.1 Hct 38.9 MCV 86.6 MCH 29.2 MCHC 33.7 RDW 12.8 Plt Count 360 MPV 9.8 Immature Gran % (Auto) 0.3 Neut % (Auto) 79.4 H Lymph % (Auto) 14.7 L [place] % (Auto) 4.9 Eos % (Auto) 0.1 Baso % (Auto) 0.6 Lymph # (Auto) 1.5 [place] # (Auto) 0.5 Eos # (Auto) 0.0 Baso # (Auto) 0.1 Abs Immat Gran (auto) 0.03 Absolute Neuts (auto) 7.9 Absolute Nucleated RBC 0.000 Nucleated RBC % (auto) 0.0 Sodium 137 Potassium 3.7 Chloride 107 Carbon Dioxide 20 L Anion Gap 14 BUN 6 L Creatinine 0.76 Estim Creat Clear Calc 119.3 Estimated GFR > 60 Random Glucose 124 H Estimat Average Glucose Hemoglobin A1c % Calcium 9.7 Total Bilirubin 0.3 Direct Bilirubin 0.2 AST 18 ALT 16 Alkaline Phosphatase 54 Total Protein 7.4 Albumin 4.5 Triglycerides Cholesterol LDL Cholesterol, Calc HDL Cholesterol Urine Color Urine Appearance Urine pH Ur Specific [place] Urine Protein Urine Glucose (UA) Urine Ketones Urine Blood Urine Nitrite Ur Leukocyte Esterase Urine RBC Urine WBC Ur Squamous Epith Cells Urine Bacteria Urine Mucus Urine Test Urine Opiates Screen Urine Fentanyl Screen Ur Barbiturates Screen Ur Phencyclidine Scrn Ur Amphetamines Screen U Benzodiazepines Scrn Urine Cocaine Screen U Marijuana (THC) Screen Ethyl Alcohol COVID-19 ([facility]) Negative COVID-19 Clin Com See Note 05/10/21 05/13/21 05/13/21 15:05 09:28 09:28 WBC RBC Hgb Hct MCV MCH MCHC RDW Plt Count MPV Immature Gran % (Auto) Neut % (Auto) Lymph % (Auto) [place] % (Auto) Eos % (Auto) Baso % (Auto) Lymph # (Auto) [place] # (Auto) Eos # (Auto) Baso # (Auto) Abs Immat Gran (auto) Absolute Neuts (auto) Absolute Nucleated RBC Nucleated RBC % (auto) Sodium Potassium Chloride Carbon Dioxide Anion Gap BUN Creatinine Estim Creat Clear Calc Estimated GFR Random Glucose Estimat Average Glucose 82 Hemoglobin A1c % 4.5 Calcium Total Bilirubin Direct Bilirubin AST ALT Alkaline Phosphatase Total Protein Albumin Triglycerides 220 Cholesterol 158 LDL Cholesterol, Calc 80 HDL Cholesterol 34 Urine Color Urine Appearance Urine pH Ur Specific [place] Urine Protein Urine Glucose (UA) Urine Ketones Urine Blood Urine Nitrite Ur Leukocyte Esterase Urine RBC Urine WBC Ur Squamous Epith Cells Urine Bacteria Urine Mucus Urine Test Urine Opiates Screen Urine Fentanyl Screen Ur Barbiturates Screen Ur Phencyclidine Scrn Ur Amphetamines Screen U Benzodiazepines Scrn Urine Cocaine Screen U Marijuana (THC) Screen Ethyl Alcohol < 10 COVID-19 ([facility]) COVID-19 Clin Com DS: Summary Hospital Course Hospital Course: Ms. Hernandez is a 21 year-old woman with hx of Bipolar Disorder versus schizoaffective disorder who was brought via EMS to [facility] after worker at store in [place] called 911 as pt presented as disorganized, anxious, paranoid stating she was being monitored through social media. Pt is known to from recent admission in 03/2021 when pt presented with similar presentation including psychosis and paranoia mostly towards family members. Pt was discharged on risperidone with follow up at [facility], although pt moved to [place] and obtained [place] health insurance and was not able to continue services in [place]. In the ED, her utox was negative. On the unit, pt reports that she felt I wasn't right so I asked them to bring me here. Pt does not specified what she thinks was going on. Pt reports my mind is not right. Pt reports that after being discharged from unit, she did not follow up with outpatient providers as she changed insurance. Pt also reports that risperidone was stopped by her [employer] as she presented with elevated prolactin levels and was symptomatic- gynecomastia, breast discharge. Pt was started on abilify, currently on 5mg po daily Pt reports difficulty sleeping, denies hearing voices but appears internally preoccupied. She reports feeling anxious, although does not report over delusional content, which I suspect pt not fully forthcoming. She denies SI/HI. Past Psychiatric History: Inpatient: 03/2021 OP: none at the moment, but would like to be connected to clinic in [place]. Suicide attempts: none Past medication trial: risperidone (high prolactin levels) Medical Evaluation Reviewed: Yes HOSPITAL COURSE Ms. Hernandez presented as guarded, disorganized, upon further clarifying collateral information,symptoms of psychosis and paranoia started just recently in January 2021. 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 Pt during this hospitalization was started on abilify given concern that she had elevated prolactin with risperidone. Pt is awaiting follow up with new [employer]/OB. This poem writer discussed with pt, pt's aunt and her OP SW[employer] FOREMAN/OB ruling out paraneoplastic syndrome given that psychosis is new and ovarian teratomas can cause paraneoplastic syndromes that mimic mental illness such as bipolar. Pt does not have hx of seizure, she does report some memory impairments and confusions. Pt may need OP consult with neurology for more in depth work up for paraneouplastic syndrome. Pt recommended to f/u with neurologist Dr. Shawn Cee from [facility] (now that pt has [place] insurance). At time of discharge pt was less guarded, less suspicious. Pt continues to present with paranoid delusions and worries about her safety but much less than before. She denies SI/HI. Her sleep improved. Her aunt, Judie, agrees to follow up pt and help coordinate appointments. This poem writer left message for [employer] to also be aware of teratoma as culprit of current psych symptoms. Status at Discharge Cognitive/behavioral status at discharge: Pt less paranoia, improved sleep. No SI/HI. Follow up with OP tx. No signs of aggression towards self or others. Functional status at discharge: independent ambulation Overall status at discharge: patient is progressing back to baseline Time Spent with Patient Time attestation: Total time spent providing and/or coordinating discharge services: Discharge Plan Discharge Patient Disposition: Home, Self-Care Discharge Diagnosis: psychosis, possible Bipolar type 1 but r/o paraneoplastic syndrome Referrals: Therapy Intake Appointment [Other] - 05/18/21 1:00 pm (This appointment is in- office at the above address. At this appointment, you will be set up with a medication prescriber) [facility] Catherine Clark [Other] - 1 Week ( ) [facility] [Other] - 1 Week (2020 2:40 pm) Physician,Unknown J [Primary Care Provider] - 1 Week Discharge Medications: New aripiprazole 10 mg Tablet 10 mg PO DAILY Qty: 30 RF: 0 Discharge Orders: Discharge Order (Routine); Ordered 05/16/21 Ordered By: Livia Morales Diet: advance to usual diet Activity on Discharge: As tolerated Stand Alone Forms: Patient Portal Discharge page Care Plan Goals: 1. Maintain mood 2. No SI/HI 3. Decrease paranoia Health Concerns: 1. F/u with PCP, [employer] Plan of Treatment: 1. Take medications as prescribed. 2. Go to nearest ED or call 911 in event of emergency Assessment: No signs of aggression towards self or others. Less paranoia but needs work up for paraneoplastic syndrome secondary Discharge Date/Time: 05/16/21 13:51
[2021-05-16] MEDS: hydrOXYzine HCL 25 MG TABLET PO (13:42)
--- NOTE | 2021-05-16 13:46 | PC.NURSE ---
Patient alert and oriented. Expresses readiness to leave. Verbalizes understanding of discharge information. Medication and follow up appointments reviewd. Patient appropriately dressed. Endorses anxiety 5/10 and was medicated with ATARAX prior to Dc. Patient was accompanied to front of hospital by RN.
== END 2021-05-16 13:51 | disposition home or self-care (01) | DRG 753 ==
LOC: HO.ED 15:12 → HO.PM5 22:39
PROVIDERS: Physician Assistant; Psychiatry & Neurology Psychiatry; Admitting Provider Psychiatry & Neurology Psychiatry; Emergency Provider Emergency Medicine; Visit Provider Psychiatry & Neurology Psychiatry
DX: F31.62 Bipolar disorder, current episode mixed, moderate (principal); Z20.822 Contact with and (suspected) exposure to COVID-19; Z79.899 Other long term (current) drug therapy
CPT/HCPCS: 36415; 80048; 80061; 80076; 80307; 81001; 81003; 81025; 82077; 83036; 85025; 87635; 99285; Q0163